=== PATIENT | male | born 1970 | race Caucasian/White ===

== ENCOUNTER 2021-04-20 12:07 | Emergency (ER) | payer OTHER ==
[2021-04-20] MEDS ORDERED: ONDANSETRON 4 MG/2 ML VIAL ONE (13:35)
[2021-04-20] MEDS ORDERED: MORPHINE 4 MG/ML SYR ONE (13:35)
[2021-04-20 13:36] LABS: Absolute Lymphocytes (CBC) 2.2 K/uL (0.7-4.9); Basophils % 1.1 % (0-1.3); Hematocrit 39.8 % (39.6-49.0); Lymphocytes % 24.4 % (15.3-44.8); MPV 7.8 fL (7.6-11.3); RBC Red Blood Cell Count 4.37 M/uL (4.33-5.43)
--- NOTE | 2021-04-20 13:42 | RAD REPORT ---
EXAM DESCRIPTION: CT - Abdomen Pelvis W Contrast - 04/20/2021 1:29 pm CLINICAL HISTORY: Abdominal pain COMPARISON: none. TECHNIQUE: Computed axial tomography of the abdomen pelvis was obtained. 100 cc Isovue-300 was admin istered intravenously. Oral contrast was not requested which limits evaluation of bowel. All CT scans are performed using dose optimization technique as appropriate and may include automated exposure control or mA/KV adjustment according to patient size. FINDINGS: 17 millimeter vague area of enhancement on the arterial phase within the posterior segment of the right lobe of the liver. Spleen, pancreas, adrenal and kidneys appear unremarkable. There is no evidence of diverticulitis. Normal appendix. Mild rectal wall thickening Small bilateral inguinal hernias contain fat IMPRESSION: Mild rectal wall thickening may be secondary to incomplete distention, inflammation or m ass. 17 millimeter vague area of enhancement within liver is nonspecific. A nonemergent liver ultrasound i s recommended
[2021-04-20 13:48] LABS: Albumin 3.6 g/dL (3.4-5.0); Bilirubin Direct 0.1 mg/dL (0-0.2); Bilirubin Total 0.3 mg/dL (0.2-1.0); Potassium 4.1 mmol/L (3.5-5.1); Protein, Total 7.4 g/dL (6.4-8.2)
--- NOTE | 2021-04-20 14:58 | ER ---
Nurse's Notes [facility] Name: Braulio Amezquita Age: 51 yrs Sex: Male : 1970 Arrival Date: 04/20/2021 Time: 12:12 Bed 8 Private MD: Diagnosis: Gastrointestinal hemorrhage, unspecified Presentation: 04/20 12:14 Chief complaint: Patient states: "I am having pain in my kidney area in the front and jd3 the back and having some blood with my stool.". Coronavirus screen: At this time, the client does not indicate any symptoms associated with coronavirus-19. Ebola Screen: Patient negative for fever greater than or equal to 101.5 degrees Fahrenheit, and additional compatible Ebola Virus Disease symptoms. Initial Sepsis Screen: Does the patient meet any 2 criteria? No. Patient's initial sepsis screen is negative. Does the patient have a suspected source of infection? No. Patient's initial sepsis screen is negative. Risk Assessment: Do you want to hurt yourself or someone else? Patient reports no desire to harm self or others. Onset of symptoms was April 18, 2021. 12:14 Method Of Arrival: Ambulatory jd3 12:14 Acuity: OMKAR 3 jd3 Historical: - Allergies: 12:17 No Known Allergies; jd3 - Home Meds: 12:22 ranolazine oral oral [Active]; [place] Oral [Active]; carvedilol oral oral [Active]; jd3 Furosemide Oral [Active]; levothyroxine oral [Active]; omeprazole Oral [Active]; pravastatin oral oral [Active]; Sucralfate Oral [Active]; tizanidine oral oral [Active]; Albuterol Inhl [Active]; Prazosin Oral [Active]; quetiapine oral oral [Active]; Bupropion Oral [Active]; Melatonin Oral [Active]; Nitroglycerin Oral [Active]; olanzapine oral oral [Active]; Aspirin Oral [Active]; - PMHx: 12:17 GERD; Bipolar disorder; Depression; PTSD; chronic back pain; personality disorder; jd3 12:22 Myocardial infarction; jd3 - PSHx: 12:17 Heart stents; jd3 - Immunization history:: Adult Immunizations up to date. - Social history:: Smoking status: Patient reports the use of cigarette tobacco products, smokes one-half pack cigarettes per day. Screenin:09 Abuse screen: Denies threats or abuse. Nutritional screening: No deficits noted. tw2 Tuberculosis screening: No symptoms or risk factors identified. Fall Risk None identified. Assessment: 13:18 General: Appears in no apparent distress. obese, Behavior is calm, cooperative, tw2 appropriate for age. Pain: Complains of pain in right lower quadrant. Neuro: Level of Consciousness is awake, alert, obeys commands, Oriented to person, place, time, situation. Cardiovascular: Capillary refill < 3 seconds Patient's skin is warm and dry. Respiratory: Airway is patent Respiratory effort is even, unlabored, Respiratory pattern is regular, symmetrical. GI: Abdomen is round non-distended, obese. : No signs and/or symptoms were reported regarding the genitourinary system. EENT: No signs and/or symptoms were reported regarding the EENT system. Derm: No signs and/or symptoms reported regarding the dermatologic system. Musculoskeletal: Range of motion: intact in all extremities. 14:20 Reassessment: Patient appears in no apparent distress at this time. No changes from tw2 previously documented assessment. Patient and/or family updated on plan of care and expected duration. Pain level reassessed. Patient is alert, oriented x 3, equal unlabored respirations, skin warm/dry/pink. Vital Signs: 12:17 BP 114 / 68; Pulse 75; Resp 17 S; Temp 98.0(TE); Pulse Ox 96% on R/A; Weight 129.27 kg jd3 (R); Height 5 ft. 10 in. (177.80 cm) (R); Pain 9/10; 13:34 BP 120 / 70; Pulse 66; Resp 17; Pulse Ox 96% on R/A; tw2 14:20 BP 124 / 71; Pulse 67; Resp 17; Pulse Ox 98% on R/A; tw2 14:58 BP 113 / 69; Pulse 71; Resp 17; Pulse Ox 97% on R/A; tw2 12:17 Body Mass Index 40.89 (129.27 kg, 177.80 cm) jd3 ED Course: 12:12 Patient arrived in ED. rg4 12:14 Triage completed. jd3 12:18 Arm band placed on. jd3 12:58 Bed in low position. Call light in reach. Pulse ox on. NIBP on. tw2 13:02 Ishmael Laguna PA is PHCP. [facility] 13:02 Todd Juarez MD is Attending Physician. [facility] 13:09 Shaylee Hobson, RN is Primary Nurse. tw2 13:18 Inserted saline lock: 20 gauge in right antecubital area, using aseptic technique. tw2 ,using aseptic technique. [employer] Blood collected. 13:29 CT Abd/Pelvis - IV Contrast Only In Process Unspecified. EDMS 15:05 No provider procedures requiring assistance completed. IV discontinued, intact, tw2 bleeding controlled, No redness/swelling at site. Pressure dressing applied. Administered Medications: 13:19 Drug: morphine 4 mg Route: IVP; Site: right antecubital; hb 15:00 Follow up: Response: No adverse reaction; Pain is decreased tw2 13:19 Drug: Zofran (Ondansetron) 4 mg Route: IVP; Site: right antecubital; hb 15:00 Follow up: Response: No adverse reaction tw2 Outcome: 14:57 Discharge ordered by . [facility] 15:05 Discharged to home ambulatory. tw2 15:05 Condition: stable 15:05 Discharge instructions given to patient, Instructed on discharge instructions, follow up and referral plans. Demonstrated understanding of instructions, follow-up care. 15:05 Patient left the ED. tw2 Signatures: Dispatcher [employer] EDMS Ishmael Laguna PA PA [facility] Sheba Thapa, RN ALVIN Shaylee Hobson, RN RN tw2 Puja Mejía 4 Min Erwin RN RN jd3
--- NOTE | 2021-04-20 14:59 | EDPHYS ---
Physician Documentation [facility] Name: Braulio Amezquita Age: 51 yrs Sex: Male : 1970 Arrival Date: 04/20/2021 Time: 12:12 Bed 8 Private MD: ED Physician Todd Juarez HPI: 04/20 13:13 This 51 yrs old Male presents to ER via Ambulatory with complaints of Bloody jmm Stools, Kidney Pain. 13:14 The patient presents with abdominal pain. Onset: The symptoms/episode began/occurred jmm gradually, 1.5 week(s) ago. The symptoms radiate to right back. Associated signs and symptoms: Pertinent positives: blood in stools, Pertinent negatives: nausea and vomiting. The symptoms are described as achy. Modifying factors: The symptoms are alleviated by nothing, the symptoms are aggravated by nothing. The patient has not experienced similar symptoms in the past. This is a 51 year old male with a history of GERD, bipolar, that presents to the ED with complaints of right lower abdominal pain beginning approx 1.5 weeks ago. Patient states he has been passing clots with bright red bloody stools beginning yesterday. States his mother does have a history of crohns disease. . Historical: - Allergies: 12:17 No Known Allergies; jd3 - Home Meds: 12:22 ranolazine oral oral [Active]; [place] Oral [Active]; carvedilol oral oral [Active]; jd3 Furosemide Oral [Active]; levothyroxine oral [Active]; omeprazole Oral [Active]; pravastatin oral oral [Active]; Sucralfate Oral [Active]; tizanidine oral oral [Active]; Albuterol Inhl [Active]; Prazosin Oral [Active]; quetiapine oral oral [Active]; Bupropion Oral [Active]; Melatonin Oral [Active]; Nitroglycerin Oral [Active]; olanzapine oral oral [Active]; Aspirin Oral [Active]; - PMHx: 12:17 GERD; Bipolar disorder; Depression; PTSD; chronic back pain; personality disorder; jd3 12:22 Myocardial infarction; jd3 - PSHx: 12:17 Heart stents; jd3 - Immunization history:: Adult Immunizations up to date. - Social history:: Smoking status: Patient reports the use of cigarette tobacco products, smokes one-half pack cigarettes per day. ROS: 13:14 Constitutional: Negative for fever, chills, and weight loss, Cardiovascular: Negative jmm for chest pain, palpitations, and edema, Respiratory: Negative for shortness of breath, cough, wheezing, and pleuritic chest pain. 13:14 Abdomen/GI: Positive for abdominal pain. 13:14 Back: Positive for radiated pain. 13:14 All other systems are negative. Exam: 13:14 Constitutional: This is a well developed, well nourished patient who is awake, alert, jmm and in no acute distress. Head/Face: atraumatic. Eyes: EOMI, no conjunctival erythema appreciated ENT: Moist Mucus Membranes Neck: Trachea midline, Supple Chest/axilla: Normal chest wall appearance and motion. Cardiovascular: Regular rate and rhythm. No edema appreciated Respiratory: Normal respirations, no respiratory distress appreciated 13:14 Back: Normal ROM Skin: General appearance color normal MS/ Extremity: Moves all extremities, no obvious deformities appreciated, no edema noted to the lower extremities Neuro: Awake and alert, normal gait Psych: Behavior is normal, Mood is normal, Patient is cooperative and pleasant 13:14 Abdomen/GI: Inspection: abdomen appears normal, Bowel sounds: normal, Palpation: soft, moderate abdominal tenderness, in the right lower quadrant. Vital Signs: 12:17 BP 114 / 68; Pulse 75; Resp 17 S; Temp 98.0(TE); Pulse Ox 96% on R/A; Weight 129.27 kg jd3 (R); Height 5 ft. 10 in. (177.80 cm) (R); Pain 9/10; 13:34 BP 120 / 70; Pulse 66; Resp 17; Pulse Ox 96% on R/A; tw2 14:20 BP 124 / 71; Pulse 67; Resp 17; Pulse Ox 98% on R/A; tw2 14:58 BP 113 / 69; Pulse 71; Resp 17; Pulse Ox 97% on R/A; tw2 12:17 Body Mass Index 40.89 (129.27 kg, 177.80 cm) jd3 MDM: 13:03 Patient medically screened. maude 14:55 Data reviewed: vital signs, nurses notes. Counseling: I had a detailed discussion with bell the patient and/or guardian regarding: the historical points, exam findings, and any diagnostic results supporting the discharge/admit diagnosis, lab results, radiology results, the need for outpatient follow up, to return to the emergency department if symptoms worsen or persist or if there are any questions or concerns that arise at home. ED course: Patient will follow up with GI for further evaluation. Patient is otherwise given strict return precautions. Patient understood and agrees with the plan of care. . 04/20 13:11 Order name: Basic Metabolic Panel; Complete Time: 13:50 [facility] 04/20 13:11 Order name: CBC with Diff; Complete Time: 13:48 [facility] 04/20 13:11 Order name: Hepatic Function; Complete Time: 13:50 [facility] 04/20 13:11 Order name: Lipase; Complete Time: 13:50 [facility] 04/20 13:11 Order name: CT Abd/Pelvis - IV Contrast Only; Complete Time: 13:48 [facility] 04/20 14:52 Order name: CREATININE WHOLE BLOOD; Complete Time: 14:52 [facility] 04/20 13:11 Order name: IV Saline Lock; Complete Time: 13:19 [facility] 04/20 13:11 Order name: Labs collected and sent; Complete Time: 13:19 [facility] Administered Medications: 13:19 Drug: morphine 4 mg Route: IVP; Site: right antecubital; hb 15:00 Follow up: Response: No adverse reaction; Pain is decreased tw2 13:19 Drug: Zofran (Ondansetron) 4 mg Route: IVP; Site: right antecubital; hb 15:00 Follow up: Response: No adverse reaction tw2 Disposition: 04/21 08:01 Co-signature as Attending Physician, Todd Juarez MD I agree with the assessment and maude plan of care. Disposition: 04/20/21 14:57 Discharged to Home. Impression: Gastrointestinal hemorrhage, unspecified. - Condition is Stable. - Discharge Instructions: Gastrointestinal Bleeding. - Medication Reconciliation Form, Thank You Letter, Antibiotic Education, Prescription Opioid Use form. - Follow up: Private Physician; When: 2 - 3 days; Reason: Recheck today's complaints, Continuance of care, Re-evaluation by your physician. Signatures: Dispatcher [employer] Todd Dean MD MD cha Mickail, Joel, PA PA Sheba Eason RN RN Sahylee Hobson RN RN tw2 Min Erwin RN RN jd3 Corrections: (The following items were deleted from the chart) 04/20 15:05 14:57 04/20/2021 14:57 Discharged to Home. Impression: Gastrointestinal hemorrhage, tw2 unspecified. Condition is Stable. Forms are Medication Reconciliation Form, Thank You Letter, Antibiotic Education, Prescription Opioid Use. Follow up: Private Physician; When: 2 - 3 days; Reason: Recheck today's complaints, Continuance of care, Re-evaluation by your physician. bell
[2021-04-20 15:33] VITALS: TEMP 98
[2021-04-20 15:38] VITALS: BP 113/69; O2SAT 97
== END 2021-04-20 15:05 | disposition home or self-care (01) ==
LOC: ER 12:07
DX: K92.2 Gastrointestinal hemorrhage, unspecified (principal); F31.9 Bipolar disorder, unspecified; I25.2 Old myocardial infarction; F17.210 Nicotine dependence, cigarettes, uncomplicated; Z95.818 Presence of other cardiac implants and grafts
CPT/HCPCS: 85025; 80048; 36415; 82565; 80076; 83690; 74177; Q9967; J2405